=== PATIENT | female | born 1960 | race Caucasian/White ===

== ENCOUNTER 2017-04-17 11:57 | Emergency (ER) | payer OTHER | END 2017-04-17 13:40 | disposition home or self-care (01) | LOC: ER1 11:57 | DX: L02.31 Cutaneous abscess of buttock (principal); G40.909 Epilepsy, unspecified, not intractable, without status epilepticus; Z79.01 Long term (current) use of anticoagulants; Z86.718 Personal history of other venous thrombosis and embolism; F17.210 Nicotine dependence, cigarettes, uncomplicated | CPT/HCPCS: 10061; 87070; 87205; 99283 ==

== ENCOUNTER → 2022-06-26 | Outpatient (CLI) | payer OTHER ==
[~2022-06-26] MED LIST: COUMADIN10 MG PO; HYDROCODON-ACE1 EAC6 PO; KEPPRA500 MG PO; LEVOXYL25 MCG PO; LOFIBRA PO; LOVENOX SY60 MG/0.6 SC; TOPAMAX200 MG PO; TRAZODONE HCL100 MG PO; VIMPAT200 MG PO; XANAX1 MG PO; ZOCOR40 MG PO
[2022-06-26 15:30] LABS: HEMOGLOBIN 15.5 gm/dl (12.3-15.3); RED BLOOD COUNT 5.12 M/UL (4.00-5.10); WHITE BLOOD COUNT 9.8 K/UL (4.5-11.0)
[2022-06-26 16:25] LABS: BUN/CREATININE RATIO 21 (0-10)
[2022-06-27 09:12] LABS: THYROXINE (T4) 8.2 ug/dL (4.5-12.0)
== END ==
LOC: LAB 13:55
PROVIDERS: Nurse Practitioner
DX: E78.5 Hyperlipidemia, unspecified (principal); F41.9 Anxiety disorder, unspecified; E03.9 Hypothyroidism, unspecified; G40.909 Epilepsy, unspecified, not intractable, without status epilepticus; E55.9 Vitamin D deficiency, unspecified; R19.7 Diarrhea, unspecified; Z86.718 Personal history of other venous thrombosis and embolism
CPT/HCPCS: 36415; 80053; 80061; 81001; 84436; 84443; 84480; 85025

== ENCOUNTER → 2022-06-29 | Outpatient (CLI) | payer OTHER | LOC: KOH-I 06-23 08:00 | DX: R10.11 Right upper quadrant pain (principal) | CPT/HCPCS: 76705 ==

== ENCOUNTER → 2022-07-12 | Outpatient (CLI) | payer OTHER | LOC: NM 07-11 10:00 | DX: R10.9 Unspecified abdominal pain (principal); R19.7 Diarrhea, unspecified | CPT/HCPCS: 78227; A9537 ==